=== PATIENT | female | born 1980 | race Caucasian/White ===

== ENCOUNTER 2020-10-03 12:38 | Emergency (ER) | payer OTHER ==
[2020-10-03] MEDS ORDERED: SODIUM CHLORIDE 0.9% 1,000 ML IV STA ×2 (12:46→12:51)
--- NOTE | 2020-10-03 12:46 | ED Physician Documentation ---
History of Present Illness - Stated complaint Stated Complaint: LOWER BODY PX - Chief complaint Chief Complaint: General - History obtained from History obtained from: Patient - History of Present Illness Timing: Today Pain level max: 7 Pain level now: 6 - Additonal information Additional information: Patient is a 40-year-old female who states she ran a half marathon this morning and is now having cramping to her legs. She states she has weakness as well. She states she did not eat or drink very much today. Nothing makes it better or worse. Has not had similar symptoms previously. No fevers. No chills. No recent illness Review of Systems Ten Systems: 10 systems reviewed and negative Constitutional: denies: Fever, Chills Respiratory: denies: Cough GI: denies: Abdominal Pain, Vomiting, Diarrhea Skin: denies: Rash Musculoskeletal: denies: Neck pain, Back pain Neurologic: denies: Headache PD PAST MEDICAL HISTORY - Past Medical History Past Medical History: No - Past Surgical History Past Surgical History: No - Allergies Allergies/Adverse Reactions: Allergies Allergy/AdvReac Type Severity Reaction Status Date / Time amoxicillin Allergy Unknown Verified 10/03/20 12:45 oxycodone AdvReac Itching Verified 10/03/20 12:45 Sulfa (Sulfonamide AdvReac Rash Verified 10/03/20 12:45 Antibiotics) - Living Situation Living Situation: reports: With family Living Arrangement: reports: At home - Social History Does the pt have substance abuse?: No - Family History Family history: reports: Non contributory PD ED PE NORMAL - Vitals Vital signs reviewed: Yes - General General: Alert and oriented X 3, No acute distress, Well developed/nourished - HEENT HEENT: PERRL, Moist mucous membranes - Neck Neck: Supple, no meningeal sign - Cardiac Cardiac: RRR, Strong equal pulses - Respiratory Respiratory: No respiratory distress, Clear bilaterally - Abdomen Abdomen: Soft, Non tender, Non distended - Derm Derm: Warm and dry, No rash - Extremities Extremities: No edema, No calf tenderness / cord - Neuro Neuro: Alert and oriented X 3 - Psych Psych: Normal mood, Normal affect Results - Vitals Vitals: Vital Signs - 24 hr 10/03/20 10/03/20 12:43 12:45 Temperature 36.4 C L 36.5 C Heart Rate 88 88 Respiratory 17 17 Rate Blood Pressure 132/88 H 132/88 H O2 Saturation 100 100 Oxygen O2 Source Room air - Labs Labs: Laboratory Tests 10/03/20 10/03/20 13:30 13:30 WBC 13.7 H RBC 3.82 L Hgb 13.5 Hct 40.1 MCV 105.0 H MCH 35.3 H MCHC 33.7 RDW 11.3 L Plt Count 174 MPV 9.0 Neut # (Auto) 11.8 H Lymph # (Auto) 0.7 L Gaston # (Auto) 1.0 Eos # (Auto) 0.0 Baso # (Auto) 0.1 Absolute Nucleated RBC 0.00 Nucleated RBC % 0.0 Sodium 133 L Potassium 4.3 Chloride 96 L Carbon Dioxide 22 Anion Gap 15.0 H BUN 14 Creatinine 0.7 Estimated GFR (MDRD) 92 Glucose 107 H Calcium 9.5 Phosphorus 3.3 Magnesium 1.5 L PD MEDICAL DECISION MAKING - ED course Complexity details: reviewed results, re-evaluated patient, considered differential, d/w patient ED course: Patient feels much better after IV fluids and IV magnesium. Patient is well- appearing, nontoxic. Afebrile. Ambulating without difficulty. Likely combination of dehydration along with Hypomagnesemia. Patient counseled regarding signs and symptoms for which I believe and urgent re-evaluation would be necessary. Patient with good understanding of and agreement to plan and is comfortable going home at this time This document was made in part using voice recognition software. While efforts are made to proofread this document, sound alike and grammatical errors may occur. Departure - Departure Disposition: 01 Home, Self Care Clinical Impression: Hypomagnesemia, Dehydration Condition: Good Instructions: ED Dehydration Follow-Up: your,doctor as needed. [Other] Comments: Make sure you are drinking plenty of water at home. Follow-up with your doctor for further care. Return if you worsen.
[2020-10-03 13:48] LABS: BASOPHILS # (AUTO) 0.1 10^3/uL (0.0-0.1); BASOPHILS % (AUTO) 0.5 %; EOSINOPHILS % (AUTO) 0.1 %; HCT - HEMATOCRIT 40.1 % (37.0-47.0); HGB - HEMOGLOBIN 13.5 g/dL (12.0-16.0); LYMPHOCYTES # (AUTO) 0.7 10^3/uL (1.5-3.5); LYMPHOCYTES % (AUTO) 5.2 %; MEAN CORPUSCULAR HEMOGLOBIN 35.3 pg (27.0-31.0); MEAN CORPUSCULAR HGB CONC 33.7 g/dL (32.0-36.0); MONOCYTES % (AUTO) 7.4 %; NEUTROPHILS # (AUTO) 11.8 10^3/uL (1.5-6.6); NEUTROPHILS % (AUTO) 86.2 %; PLT - PLATELET COUNT 174 10^3/uL (130-450); RED BLOOD COUNT 3.82 10^6/uL (4.20-5.40); RED CELL DISTRIBUTION WIDTH 11.3 % (12.0-15.0); WHITE BLOOD COUNT 13.7 x10^3/uL (4.8-10.8)
[2020-10-03 14:06] LABS: CALCIUM 9.5 mg/dL (8.5-10.3); CREATININE 0.7 mg/dL (0.4-1.0); MAGNESIUM 1.5 mg/dL (1.7-2.8); PHOSPHORUS 3.3 mg/dL (2.5-4.6); POTASSIUM 4.3 mmol/L (3.5-5.0)
[2020-10-03] MEDS ORDERED: MAGNESIUM SULFATE 2 GRAM 2 GM/50 ML BAG IV ONE (14:12)
[2020-10-03 15:01] VITALS: BP 127/95
== END 2020-10-03 15:27 | disposition home or self-care (01) ==
LOC: ED 12:38
DX: E83.42 Hypomagnesemia (principal); E86.0 Dehydration
CPT/HCPCS: 36415; 80048; 83735; 84100; 85025; 96361; 96365; 99284